=== PATIENT | female | born 1945 | race Caucasian/White ===

== ENCOUNTER 2018-01-22 06:33 | Day surgery (SDC) | payer MEDICARE ==
[2018-01-16 15:44] VITALS: BMI 49.9
[~2018-01-22 06:33] MED LIST: LACTATED RINGERS 1,000 ML IV SCH; LIDOCAINE 1% 20 ML VIAL (10MG/ML) FOR IV START INTRADERMA PRN
[2018-01-22 07:26] VITALS: TEMP 96.8
[2018-01-22] MEDS ORDERED: LACTATED RINGERS 1,000 ML IV ONE ×2 (07:40)
[2018-01-22 07:41] LABS: Glucose,Whole Blood 144 mg/dL (75-99)
[2018-01-22] MEDS ORDERED: PROPOFOL 10 MG/ML 20 ML VIAL IV ONE (07:58)
[2018-01-22] MEDS ORDERED: LIDOCAINE 1% INJ 10MG/ML (20 ML MDV) ONE (07:58)
--- NOTE | 2018-01-22 08:32 | P.PCN ---
Date of Procedure: 01/22/18 Procedure(s) Performed: Procedure: Total colonoscopy. Preoperative diagnosis: Screening for neoplasia. Postoperative diagnosis: Exam within normal limits. Preparation: HalfLytely prep. Sedation: Was provided by anesthesia. Brief clinical history: The patient is a 72-year-old female who is scheduled for this evaluation for screening for neoplasia age being her risk factor. She never had a prior exam. She has no abdominal complaints, bleeding or anemia. Procedure: With the patient on her left lateral decubitus position and after informed consent and adequate sedation, the perianal area was inspected and it did not show any fissures or fistulas. There were no masses felt on digital rectal examination. The Olympus CFQ 160L video colonoscope was then inserted in the rectum and the usual fashion and advanced to the cecum. The mucosa appeared healthy. No polyps or tumors were seen or any obvious diverticular disease or other pathology. I retroflexed the endoscope in the rectum before the endoscope was withdrawn. The patient tolerated the procedure well. Plan: The patient was reassured. I discussed with her son. At her age, I did not schedule a future screening exam and that could be kept as a contingency based on her overall health in 10 years.
[2018-01-22 08:45] VITALS: BP 112/63; PULSE 93; RESP 18
== END 2018-01-22 09:38 | disposition home or self-care (01) ==
LOC: ORWHC2ENDO 06:33
DX: Z12.11 Encounter for screening for malignant neoplasm of colon (principal); I48.91 Unspecified atrial fibrillation; I10 Essential (primary) hypertension; E78.5 Hyperlipidemia, unspecified; E11.40 Type 2 diabetes mellitus with diabetic neuropathy, unspecified; G47.33 Obstructive sleep apnea (adult) (pediatric); J45.909 Unspecified asthma, uncomplicated; E66.01 Morbid (severe) obesity due to excess calories; Z79.01 Long term (current) use of anticoagulants; Z79.899 Other long term (current) drug therapy; Z68.42 Body mass index [BMI] 45.0-49.9, adult
CPT/HCPCS: J2001; J2704; G0121

== ENCOUNTER 2018-02-10 17:43 | Inpatient (IN) | payer MEDICARE, OTHER ==
[2018-02-10] MEDS ORDERED: SODIUM CHLORIDE 0.9% 1,000 ML IV STA (17:56)
--- NOTE | 2018-02-10 18:15 | ED ---
Nausea/Vomiting/Diarrhea HPI - General Chief complaint: Nausea/Vomiting/Diarrhea Stated complaint: Weakness Time Seen by Provider: 02/10/18 17:56 Source: EMS, RN notes reviewed, old records reviewed Mode of arrival: EMS Limitations: no limitations - History of Present Illness Initial comments: This is a 72-year-old female the ER for evaluation patient resents today for evaluation of weakness, persistent diarrhea. Patient is a poor historian history obtained from patient's son. Patient feels like her heart is racing and has had nausea vomiting and diarrhea for 1-2 days. No fevers. MD complaint: nausea, vomiting, diarrhea -: days(s) (2) Description of Vomiting: food contents, foul-smelling Associated Abdominal Pain: No Radiation: none Severity: severe Severity scale (1-10): 8 Quality: cramping Consistency: constant Improves with: none Worsens with: none - Related Data Home Medications Medication Instructions Recorded Confirmed Oxybutynin Chloride [Ditropan] 5 mg PO BID 10/20/13 02/10/18 Cyanocobalamin (Vitamin B-12) 1,000 mcg PO DAILY 01/16/18 02/10/18 [Vitamin B-12] Metoprolol Tartrate [Lopressor] 50 mg PO DAILY 01/16/18 02/10/18 Atorvastatin [Lipitor] 20 mg PO HS 02/10/18 02/10/18 Warfarin Sodium 4 mg PO DAILY 02/10/18 02/10/18 Warfarin [Coumadin] 1 mg PO DAILY 02/10/18 02/10/18 Allergies Allergy/AdvReac Type Severity Reaction Status Date / Time No Known Allergies Allergy Verified 02/10/18 18:14 Review of Systems ROS Statement: Those systems with pertinent positive or pertinent negative responses have been documented in the HPI. ROS Other: All systems not noted in ROS Statement are negative. Past Medical History Past Medical History: Atrial Fibrillation, Diabetes Mellitus, Hyperlipidemia, Hypertension Additional Past Medical History / Comment(s): neuropathy- afib new onset October 2013. DIET CONTROL DIABETIC History of Any Multi-Drug Resistant Organisms: None Reported Past Surgical History: Cholecystectomy, Hernia Repair Additional Past Surgical History / Comment(s): Large abdominal abscess I&D. Eye muscle surgery at 19 years of age. COLONOSCOPY Past Anesthesia/Blood Transfusion Reactions: No Reported Reaction Past Psychological History: No Psychological Hx Reported Smoking Status: Never smoker Past Alcohol Use History: None Reported Past Drug Use History: None Reported - Past Family History Father Family Medical History: Cancer Additional Family Medical History / Comment(s): lung cancer Mother Family Medical History: Cancer Additional Family Medical History / Comment(s): stomach General Exam Limitations: no limitations General appearance: alert, in no apparent distress Head exam: Present: atraumatic, normocephalic, normal inspection Eye exam: Present: normal appearance, PERRL, EOMI. Absent: scleral icterus, conjunctival injection, periorbital swelling ENT exam: Present: normal exam, mucous membranes moist Neck exam: Present: normal inspection. Absent: tenderness, meningismus, lymphadenopathy Respiratory exam: Present: normal lung sounds bilaterally. Absent: respiratory distress, wheezes, rales, rhonchi, stridor Cardiovascular Exam: Present: tachycardia, irregular rhythm, normal heart sounds. Absent: systolic murmur, diastolic murmur, rubs, gallop, clicks GI/Abdominal exam: Present: soft, normal bowel sounds. Absent: distended, tenderness, guarding, rebound, rigid Extremities exam: Present: normal inspection, full ROM, normal capillary refill. Absent: tenderness, pedal edema, joint swelling, calf tenderness Back exam: Present: normal inspection Neurological exam: Present: alert, oriented X3, CN II-XII intact Psychiatric exam: Present: normal affect, normal mood Skin exam: Present: warm, dry, intact, normal color. Absent: rash Course Vital Signs 02/10/18 02/10/18 02/10/18 18:11 18:44 18:50 Temperature 98.3 F Pulse Rate 154 H Respiratory 20 Rate Blood Pressure 145/100 143/116 O2 Sat by Pulse 95 95 97 Oximetry 02/10/18 02/10/18 02/10/18 19:01 19:10 19:20 Temperature Pulse Rate 95 103 H Respiratory 18 Rate Blood Pressure 143/116 155/112 155/112 O2 Sat by Pulse 97 76 L 97 Oximetry 02/10/18 02/10/18 02/10/18 19:30 19:40 19:50 Temperature Pulse Rate 111 H 106 H Respiratory Rate Blood Pressure 155/112 149/85 149/85 O2 Sat by Pulse 85 L 89 L 98 Oximetry 02/10/18 02/10/18 02/10/18 20:00 20:10 20:20 Temperature Pulse Rate Respiratory Rate Blood Pressure 149/85 146/99 146/99 O2 Sat by Pulse 96 95 97 Oximetry 02/10/18 21:47 Temperature 98.6 F Pulse Rate 102 H Respiratory 20 Rate Blood Pressure 144/81 O2 Sat by Pulse 97 Oximetry - Reevaluation(s) Reevaluation #1: 02/10/18 21:55 Medical record is reviewed and noncontributory Reevaluation #2: 02/10/18 21:55 Atrial fibrillation with RVR stop on its own Reevaluation #3: 02/10/18 21:55 Patient still having nausea and vomiting Medical Decision Making - Medical Decision Making 72 female the ER with nausea vomiting diarrhea incontinence of urine. Patient will be admitted for symptom management, patient currently still nauseous, vomiting has improved - Lab Data Result diagrams: 02/10/18 18:30 02/10/18 18:30 Lab Results 02/10/18 02/10/18 02/10/18 Range/Units 18:30 18:30 18:30 WBC 7.9 (3.8-10.6) k/uL RBC 4.50 (3.80-5.40) m/uL Hgb 13.9 (11.4-16.0) gm/dL Hct 42.6 (34.0-46.0) % MCV 94.6 (80.0-100.0) fL MCH 30.9 (25.0-35.0) pg MCHC 32.7 (31.0-37.0) g/dL RDW 12.9 (11.5-15.5) % Plt Count 185 (150-450) k/uL Neutrophils % 74 % Lymphocytes % 17 % Monocytes % 5 % Eosinophils % 2 % Basophils % 0 % Neutrophils # 5.9 (1.3-7.7) k/uL Lymphocytes # 1.3 (1.0-4.8) k/uL Monocytes # 0.4 (0-1.0) k/uL Eosinophils # 0.2 (0-0.7) k/uL Basophils # 0.0 (0-0.2) k/uL PT (9.0-12.0) sec INR (<1.2) APTT (22.0-30.0) sec Sodium 144 (137-145) mmol/L Potassium 4.4 (3.5-5.1) mmol/L Chloride 112 H (98-107) mmol/L Carbon Dioxide 22 (22-30) mmol/L Anion Gap 10 mmol/L BUN 13 (7-17) mg/dL Creatinine 0.92 (0.52-1.04) mg/dL Est GFR (CKD-EPI)AfAm 73 (>60 ml/min/1.73 sqM) Est GFR (CKD-EPI)NonAf 63 (>60 ml/min/1.73 sqM) Glucose 120 H (74-99) mg/dL Plasma Lactic Acid Bud (0.7-2.0) mmol/L Calcium 8.8 (8.4-10.2) mg/dL Phosphorus 2.9 (2.5-4.5) mg/dL Magnesium 1.9 (1.6-2.3) mg/dL Total Bilirubin 1.4 H (0.2-1.3) mg/dL AST 20 (14-36) U/L ALT 19 (9-52) U/L Alkaline Phosphatase 130 H (38-126) U/L Total Creatine Kinase 53 (30-135) U/L CK-MB (CK-2) 0.7 (0.0-2.4) ng/mL CK-MB (CK-2) Rel Index 1.3 Troponin I <0.012 (0.000-0.034) ng/mL Total Protein 7.5 (6.3-8.2) g/dL Albumin 3.7 (3.5-5.0) g/dL TSH 0.101 L (0.465-4.680) mIU/L 02/10/18 02/10/18 Range/Units 18:30 18:41 WBC (3.8-10.6) k/uL RBC (3.80-5.40) m/uL Hgb (11.4-16.0) gm/dL Hct (34.0-46.0) % MCV (80.0-100.0) fL MCH (25.0-35.0) pg MCHC (31.0-37.0) g/dL RDW (11.5-15.5) % Plt Count (150-450) k/uL Neutrophils % % Lymphocytes % % Monocytes % % Eosinophils % % Basophils % % Neutrophils # (1.3-7.7) k/uL Lymphocytes # (1.0-4.8) k/uL Monocytes # (0-1.0) k/uL Eosinophils # (0-0.7) k/uL Basophils # (0-0.2) k/uL PT 18.2 H (9.0-12.0) sec INR 1.8 H (<1.2) APTT 24.3 (22.0-30.0) sec Sodium (137-145) mmol/L Potassium (3.5-5.1) mmol/L Chloride (98-107) mmol/L Carbon Dioxide (22-30) mmol/L Anion Gap mmol/L BUN (7-17) mg/dL Creatinine (0.52-1.04) mg/dL Est GFR (CKD-EPI)AfAm (>60 ml/min/1.73 sqM) Est GFR (CKD-EPI)NonAf (>60 ml/min/1.73 sqM) Glucose (74-99) mg/dL Plasma Lactic Acid Bud 1.9 (0.7-2.0) mmol/L Calcium (8.4-10.2) mg/dL Phosphorus (2.5-4.5) mg/dL Magnesium (1.6-2.3) mg/dL Total Bilirubin (0.2-1.3) mg/dL AST (14-36) U/L ALT (9-52) U/L Alkaline Phosphatase (38-126) U/L Total Creatine Kinase (30-135) U/L CK-MB (CK-2) (0.0-2.4) ng/mL CK-MB (CK-2) Rel Index Troponin I (0.000-0.034) ng/mL Total Protein (6.3-8.2) g/dL Albumin (3.5-5.0) g/dL TSH (0.465-4.680) mIU/L - EKG Data -: EKG Interpreted by Me (EKG shows sinus rhythm rate of 90, NV 146, QRS 1.2, QTc 494) Disposition Clinical Impression: Atrial fibrillation, Atrial fibrillation with RVR, Dehydration, Gastroenteritis , Nausea & vomiting Disposition: ADMITTED IP TO THIS HOSP Condition: Good Is patient prescribed a controlled substance at d/c from ED?: No Referrals: None,Stated [REFERRING] - 1-2 days
[2018-02-10 18:51] LABS: Basophils % (A) 0 %; Eosinophils # (A) 0.2 k/uL (0-0.7); Eosinophils % (A) 2 %; HCT 42.6 % (34.0-46.0); HGB 13.9 gm/dL (11.4-16.0); Lymphocytes # (A) 1.3 k/uL (1.0-4.8); Lymphocytes % (A) 17 %; MCH 30.9 pg (25.0-35.0); MCHC 32.7 g/dL (31.0-37.0); MCV 94.6 fL (80.0-100.0); Mean Platelet Volume 7.7; Monocytes # (A) 0.4 k/uL (0-1.0); Monocytes % (A) 5 %; Neutrophils # (A) 5.9 k/uL (1.3-7.7); Neutrophils % (A) 74 %; Platelet Count 185 k/uL (150-450); RDW 12.9 % (11.5-15.5); WBC 7.9 k/uL (3.8-10.6)
[2018-02-10] MEDS ORDERED: PANTOPRAZOLE 40 MG/10 ML VIAL IVP STA (18:53)
[2018-02-10] MEDS ORDERED: ONDANSETRON 4 MG/2 ML VIAL IVP STA (18:53)
[2018-02-10 19:01] LABS: INR 1.8 (<1.2); Partial Thromboplastin Time 24.3 sec (22.0-30.0); Prothrombin Time 18.2 sec (9.0-12.0)
[2018-02-10 19:04] LABS: Albumin 3.7 g/dL (3.5-5.0); Calcium 8.8 mg/dL (8.4-10.2); Magnesium 1.9 mg/dL (1.6-2.3); Phosphorus 2.9 mg/dL (2.5-4.5); Potassium 4.4 mmol/L (3.5-5.1); Total Bilirubin 1.4 mg/dL (0.2-1.3); Total Protein 7.5 g/dL (6.3-8.2)
[2018-02-10 19:08] LABS: Creatine Kinase 53 U/L (30-135)
[2018-02-10 19:21] LABS: Creatine Kinase MB 0.7 ng/mL (0.0-2.4); Troponin I <0.012 ng/mL (0.000-0.034)
[2018-02-10] MEDS ORDERED: ONDANSETRON 4 MG/2 ML VIAL IVP PRN (21:25)
[2018-02-10] MEDS ORDERED: METOCLOPRAMIDE 5 MG/ML 2 ML VIAL IVP STA (21:26)
[2018-02-10] MEDS ORDERED: diphenhydrAMINE 50 MG/ML 1 ML VIAL IVP STA (21:26)
--- NOTE | 2018-02-11 00:02 | P.HPIM ---
History of Present Illness H&P Date: 02/10/18 Chief Complaint: abd pain 72 year old female with history of HTN, DM, and afib on coumadin patient presented to the ED today, due to sudden on set lower abd pain , 10/10 in severity, sharp constant pain , non radiating , started today, not related to food, she did not try to take any medications for it, and decided to come to the hospital for evaluation. this was associated with nausea, but no vomiting , no fevers, no chills. she denies any recent travel , sick contact, or any unsanitary food source. patient reports chronic diarrhea 2-4 times daily, non bloody , no melena , this has been going on for 3-4 months, she denies any associated tennesmus patient otherwise, denies any GI bleeding, heart racing, palpitation, chest pain , SOB< fever, chills, or new focal neurological deficit. currently she feels more comfortable, reports that her lower abd pain is at 3/ 10 in severity. Review of Systems Pertinent positives as noted in HPI. All other systems were reviewed and are negative Past Medical History Past Medical History: Atrial Fibrillation, Diabetes Mellitus, Hyperlipidemia, Hypertension Additional Past Medical History / Comment(s): neuropathy- afib new onset October 2013. DIET CONTROL DIABETIC History of Any Multi-Drug Resistant Organisms: None Reported Past Surgical History: Cholecystectomy, Hernia Repair Additional Past Surgical History / Comment(s): Large abdominal abscess I&D. Eye muscle surgery at 19 years of age. COLONOSCOPY Past Anesthesia/Blood Transfusion Reactions: No Reported Reaction Past Psychological History: No Psychological Hx Reported Smoking Status: Never smoker Past Alcohol Use History: None Reported Past Drug Use History: None Reported - Past Family History Father Family Medical History: Cancer Additional Family Medical History / Comment(s): lung cancer Mother Family Medical History: Cancer Additional Family Medical History / Comment(s): stomach Medications and Allergies Home Medications Medication Instructions Recorded Confirmed Type Oxybutynin Chloride [Ditropan] 5 mg PO BID 10/20/13 02/10/18 History Cyanocobalamin (Vitamin B-12) 1,000 mcg PO DAILY 01/16/18 02/10/18 History [Vitamin B-12] Metoprolol Tartrate [Lopressor] 50 mg PO DAILY 01/16/18 02/10/18 History Atorvastatin [Lipitor] 20 mg PO HS 02/10/18 02/10/18 History Warfarin Sodium 4 mg PO DAILY 02/10/18 02/10/18 History Warfarin [Coumadin] 1 mg PO DAILY 02/10/18 02/10/18 History Allergies Allergy/AdvReac Type Severity Reaction Status Date / Time No Known Allergies Allergy Verified 02/10/18 18:14 Physical Exam Vitals: Vital Signs Temp Pulse Resp BP Pulse Ox 02/10/18 22:21 98.0 F 02/10/18 21:47 98.6 F 102 H 20 144/81 97 02/10/18 20:20 146/99 97 02/10/18 20:10 146/99 95 02/10/18 20:00 149/85 96 02/10/18 19:50 106 H 149/85 98 02/10/18 19:40 149/85 89 L 02/10/18 19:30 111 H 155/112 85 L 02/10/18 19:20 103 H 155/112 97 02/10/18 19:10 155/112 76 L 02/10/18 19:01 95 18 143/116 97 02/10/18 18:50 143/116 97 02/10/18 18:44 95 02/10/18 18:11 98.3 F 154 H 20 145/100 95 Intake and Output 02/10/18 02/10/18 02/11/18 14:59 22:59 06:59 Other: Weight 149.685 kg Constitutional: No acute distress, conversant, pleasant, obese Eyes: Anicteric sclerae, moist conjunctiva, no lid-lag Pupils equal round reactive to light ENMT: NC/AT Oropharynx clear, no erythema, exudates Neck: Supple, FROM, no masses, or JVD No carotid bruits No thyromegaly Lungs: Clear to auscultation Clear to percussion Normal respiratory effort, no accessory muscle use Cardiovascular: Heart irregular No murmurs, gallops, or rubs No peripheral edema Abdominal: Soft Slight discomfort to palpation of the suprapubic region , no guarding, rebound or rigidity Abdomen moving with respiration Normoactive bowel sounds No hepatomegaly, No splenomegaly No palpable mass No abdominal wall hernia noted Skin: Normal temperature, tone, texture, turgor No induration No subcutaneous nodules No rash No ulcers Chronic skin changes over the lower third of bilateral legs Extremities: No digital cyanosis No clubbing Pedal pulses weak and symmetrical, both feet warm to the touch Radial pulses intact and symmetrical No calf tenderness Psychiatric: Alert and oriented to person, place and time Appropriate affect fair judgment Neuro Muscles Strength 4/5 in all 4 extremities Sensation to light touch grossly present throughout Cranial nerves II-XII grossly intact No focal sensory deficits Lymphatics: no palpable cervical or supraclavicular , or inguinal lymph nodes Results CBC & Chem 7: 02/10/18 18:30 02/10/18 18:30 Labs: Abnormal Lab Results - Last 24 Hours (Table) 02/10/18 02/10/18 Range/Units 18:30 18:30 PT 18.2 H (9.0-12.0) sec INR 1.8 H (<1.2) Chloride 112 H (98-107) mmol/L Glucose 120 H (74-99) mg/dL Total Bilirubin 1.4 H (0.2-1.3) mg/dL Alkaline Phosphatase 130 H (38-126) U/L TSH 0.101 L (0.465-4.680) mIU/L Assessment and Plan Assessment: 72-year-old female with history of hypertension, diabetes, A. fib on Coumadin, patient admitted under observation with anticipated length of stay less than 48 hours due to acute onset lower abdominal pain and chronic diarrhea with nausea and poor by mouth intake. Patient's stool be started for cultures and C. diff, IV fluid hydration and symptomatic control most likely patient has gastroenteritis if symptoms improve by morning and tolerating by mouth intake possibly patient will be discharged Plan: Acute gastroenteritis Symptomatic control IV fluid hydration Check stool for C. diff and other infectious causes Otherwise chronic diarrhea should be investigated now patient Patient claims to be up-to-date on his colonoscopies which has been normal Chronic A. fib on Coumadin Denies any GI bleeding Continue Coumadin dosing by pharmacy Hypertension currently controlled Continue metoprolol Diabetes mellitus type 2 controlled Insulin sliding scale Low TSH consider outpatient follow-up DVT prophylaxis patient on Coumadin for A. fib Surrogate decision-maker: Patient daughter and son CODE STATUS: Full code Discussed with: Patient, ER, RN Anticipated discharge: <[address]: Home A total of 55 minutes was spent on the care of this complex patient more than 50 % of the time was spent in counseling and care coordination.
[2018-02-11 04:09] LABS: Appearance,Urine Cloudy (Clear); Bacteria,Urine Few /hpf; Bilirubin,Urine Negative (Negative); Blood,Urine Trace (Negative); Color,Urine Yellow; Glucose,Urine (UA) Negative (Negative); Ketones,Urine Negative (Negative); Leukocyte Esterase,Urine Large (Negative); Mucus,Urine Rare /hpf; Nitrite,Urine Positive (Negative); Protein,Urine Trace (Negative); RBC,Urine 3 /hpf (0-5); Specific Gravity,Urine 1.011 (1.001-1.035); Squamous Epithelial Cell,Urine 2 /hpf (0-4); Urobilinogen,Urine <2.0 mg/dL (<2.0); WBC,Urine 85 /hpf (0-5)
[2018-02-11] MEDS ORDERED: MORPHINE SULFATE 4 MG/ML SYRINGE IVP ONE (04:15)
[2018-02-11 08:07] LABS: Glucose,Whole Blood 100 mg/dL (75-99)
[2018-02-11] MEDS: INSULIN ASPART 100 UNIT/ML 1 ML 10 ML VIAL SQ SCH ×4 (08:07→22:02)
[2018-02-11] MEDS: METOPROLOL TARTRATE 50 MG TAB PO SCH (08:15)
[2018-02-11 09:52] LABS: Basophils % (A) 0 %; Eosinophils # (A) 0.1 k/uL (0-0.7); Eosinophils % (A) 2 %; HCT 36.6 % (34.0-46.0); HGB 11.8 gm/dL (11.4-16.0); Lymphocytes # (A) 1.3 k/uL (1.0-4.8); Lymphocytes % (A) 24 %; MCH 30.9 pg (25.0-35.0); MCHC 32.2 g/dL (31.0-37.0); MCV 95.8 fL (80.0-100.0); Mean Platelet Volume 7.4; Monocytes # (A) 0.5 k/uL (0-1.0); Monocytes % (A) 8 %; Neutrophils # (A) 3.6 k/uL (1.3-7.7); Neutrophils % (A) 64 %; Platelet Count 186 k/uL (150-450); RBC 3.82 m/uL (3.80-5.40); RDW 12.8 % (11.5-15.5); WBC 5.5 k/uL (3.8-10.6)
[2018-02-11 09:54] LABS: Prothrombin Time 19.3 sec (9.0-12.0)
[2018-02-11 10:02] LABS: Albumin 2.9 g/dL (3.5-5.0); Calcium 8.3 mg/dL (8.4-10.2); Potassium 4.2 mmol/L (3.5-5.1); Total Bilirubin 1.2 mg/dL (0.2-1.3); Total Protein 6.1 g/dL (6.3-8.2)
--- NOTE | 2018-02-11 10:13 | P.PN ---
Subjective Progress Note Date: 02/11/18 Principal diagnosis: Gastroenteritis, chronic diarrhea. Patient seen and examined. No acute events overnight. Patient reports complete resolution of abdominal pain. No nausea or vomiting at this point. She denies any chest pain, shortness of breath or palpitations. Patient reports diarrhea ongoing for the past 3-4 months. She denies any fever or chills. No recent antibiotic use. Stool is normal in color, watery per patient with no blood. Reports at least 1 bowel movement daily (diarrhea?). Objective - Vital Signs Vital signs: Vital Signs Temp 98.7 F 02/11/18 07:00 Pulse 95 02/11/18 07:00 Resp 17 02/11/18 07:00 BP 93/61 02/11/18 07:00 Pulse Ox 92 L 02/11/18 07:00 Intake & Output 02/10/18 02/11/18 02/11/18 18:59 06:59 18:59 Weight 149.685 kg Other: Voiding Method Bedside Commode Diaper # Voids 1 - Exam General: [non toxic], [no distress], [appears at stated age] Derm: [warm], [dry] Head: [atraumatic], [normocephalic], [symmetric] Eyes: [EOMI], [no lid lag], [anicteric sclera] Mouth: [no lip lesion], [mucus membranes moist] Cardiovascular: [Irregularly irregular], [no murmur], [positive DP pulse bilateral], Lungs: [Decreased breath sounds bilateral], [no rhonchi, no rales] , [no accessory muscle use] Abdominal: [soft], [ nontender to palpation], [no guarding], [no appreciable organomegaly], [obese] Ext: [no gross muscle atrophy], [no edema], [no contractures] Neuro: [no focal neuro deficits] Psych: [Alert], [oriented], [appropriate affect] - Labs CBC & Chem 7: 02/10/18 18:30 02/10/18 18:30 Labs: Abnormal Lab Results - Last 24 Hours (Table) 02/10/18 02/10/18 02/11/18 Range/Units 18:30 18:30 03:50 PT 18.2 H (9.0-12.0) sec INR 1.8 H (<1.2) Chloride 112 H (98-107) mmol/L Glucose 120 H (74-99) mg/dL POC Glucose (mg/dL) (75-99) mg/dL Total Bilirubin 1.4 H (0.2-1.3) mg/dL Alkaline Phosphatase 130 H (38-126) U/L TSH 0.101 L (0.465-4.680) mIU/L Urine Appearance Cloudy H (Clear) Urine Protein Trace H (Negative) Urine Blood Trace H (Negative) Urine Nitrite Positive H (Negative) Ur Leukocyte Esterase Large H (Negative) Urine WBC 85 H (0-5) /hpf Urine Bacteria Few H (None) /hpf Urine Mucus Rare H (None) /hpf 02/11/18 Range/Units 07:55 PT (9.0-12.0) sec INR (<1.2) Chloride (98-107) mmol/L Glucose (74-99) mg/dL POC Glucose (mg/dL) 100 H (75-99) mg/dL Total Bilirubin (0.2-1.3) mg/dL Alkaline Phosphatase (38-126) U/L TSH (0.465-4.680) mIU/L Urine Appearance (Clear) Urine Protein (Negative) Urine Blood (Negative) Urine Nitrite (Negative) Ur Leukocyte Esterase (Negative) Urine WBC (0-5) /hpf Urine Bacteria (None) /hpf Urine Mucus (None) /hpf Assessment and Plan Assessment: Assessment and Plan 1. Noninfectious gastroenteritis: Ongoing for the past 3-4 months. States is watery without formed stools but only 1 bowel movement daily? Low concern for C. difficile. Patient is aferbile with no leukocytosis. TSH 0.101. Will continue supportive treatment. Zofran IV PRN for N/V. Advance diet as tolerated. FU Stool Cx, C. difficile, Lipase, T.Bili/ALK-P, FT4 2. Asymptomatic bacteruria: Nitrite and LE +. Patient asymptomatic. Will monitor , do not treat. 3. Atrial fibrillation: Rate controlled. Continue Metoprolol 50 mg PO QD. Anticoagulation with Coumadin 5 mg PO QD. Keep Mg > 2 and K > 4. TSH 0.101. FU FT4 4. Diabetes Mellitus: POC glucose 100. A1c 5.7 in 2013. Diabetic diet. ISS. Hypoglycemic precautions. Regular accuchecks. 5. Hypertension: BP 93/61. Continue Metoprolol. Continue Lipitor 20 mg PO QHS. Monitor vitals adjust medications as necessary Patient improving since admission. No BM since admission. Unable to collect sample. Likely non infectious given how long the patient has had diarrhea. She shows no signs of dehydration. Will advance her diet. She will possibly be discharged today or tomorrow depending on how well she tolerates her diet. She will also need a good follow up for C-scope arrangement and workup of chronic diarrhea.
[2018-02-11 11:32] LABS: Glucose,Whole Blood 86 mg/dL (75-99)
[2018-02-11 12:14] LABS: T4, Free (Free Thyroxine) 1.7 ng/dL (0.78-2.19)
[2018-02-11 16:57] LABS: Glucose,Whole Blood 124 mg/dL (75-99)
[2018-02-11] MEDS ORDERED: WARFARIN 5 MG TAB PO ONE (18:00)
[2018-02-11 20:50] LABS: Glucose,Whole Blood 157 mg/dL (75-99)
[2018-02-11] MEDS: ATORVASTATIN 20 MG TAB PO SCH (22:02)
[2018-02-12 07:38] LABS: Glucose,Whole Blood 91 mg/dL (75-99)
[2018-02-12 10:11] LABS: INR 1.9 (<1.2); Prothrombin Time 18.3 sec (9.0-12.0)
[2018-02-12] MEDS: METOPROLOL TARTRATE 50 MG TAB PO SCH (11:36)
--- NOTE | 2018-02-12 11:53 | P.PN ---
Subjective Progress Note Date: 02/12/18 Principal diagnosis: Gastroenteritis Patient seen and examined. No acute events overnight. Patient reports resolution of her diarrhea. One small bowel yesterday. No bowel movement today. She denies any abdominal pain or nausea or vomiting. Yesterday his plan to discharge was halted due to the fact that patient is currently homeless. She was previously living in a hotel/motel, and currently has no living arrangement. She is under Adult Protective Services who recommended inpatient rehab. Objective - Vital Signs Vital signs: Vital Signs Temp 98.0 F 02/12/18 11:34 Pulse 86 02/12/18 11:34 Resp 16 02/12/18 11:34 BP 129/78 02/12/18 11:34 Pulse Ox 96 02/12/18 11:34 Intake & Output 02/11/18 02/12/18 02/12/18 18:59 06:59 18:59 Intake Total 360 280 Output Total 1 2 Balance 359 -2 280 Intake: Oral 360 280 Output: Stool 1 2 Other: Voiding Method Toilet Toilet Bedside Commode Bedside Commode Diaper Diaper # Voids 1 2 - Exam General: [non toxic], [no distress], [appears at stated age] Derm: [warm], [dry] Head: [atraumatic], [normocephalic], [symmetric] Eyes: [EOMI], [no lid lag], [anicteric sclera] Mouth: [no lip lesion], [mucus membranes moist] Cardiovascular: [Irregularly irregular], [no murmur], [positive DP pulse bilateral], Lungs: [Decreased breath sounds bilateral], [no rhonchi, no rales] , [no accessory muscle use] Abdominal: [soft], [ nontender to palpation], [no guarding], [no appreciable organomegaly], [obese] Ext: [no gross muscle atrophy], [no edema], [no contractures] Neuro: [no focal neuro deficits] Psych: [Alert], [oriented], [appropriate affect] - Labs CBC & Chem 7: 02/11/18 08:57 02/11/18 08:57 Labs: Abnormal Lab Results - Last 24 Hours (Table) 02/11/18 02/11/18 02/12/18 Range/Units 16:45 20:35 09:22 PT 18.3 H (9.0-12.0) sec INR 1.9 H (<1.2) POC Glucose (mg/dL) 124 H 157 H (75-99) mg/dL Microbiology - Last 24 Hours (Table) 02/11/18 03:50 Urine Culture - Preliminary Urine,Clean Catch Gram Neg Bacilli 02/11/18 16:30 Stool Culture - Preliminary Stool Assessment and Plan Assessment: Assessment and Plan 1. Noninfectious gastroenteritis: Ongoing for the past 3-4 months. States is watery without formed stools but only 1 bowel movement daily? Low concern for C. difficile. Patient is aferbile with no leukocytosis. TSH 0.101, free T4 within normal limits. Will continue supportive treatment. Zofran IV PRN for N/ V. Advance diet as tolerated. C. difficile and lipase negative FU Stool Cx 2. Asymptomatic bacteruria: Nitrite and LE +. Patient asymptomatic. Will monitor , do not treat. Follow-up urine culture 3. Atrial fibrillation: Rate controlled. Continue Metoprolol 50 mg PO QD. Anticoagulation with Coumadin 5 mg PO QD. Keep Mg > 2 and K > 4. TSH 0.101, free T4 within normal limits. 4. Diabetes Mellitus: POC glucose 91. A1c 5.7 in 2014. Diabetic diet. ISS. Hypoglycemic precautions. Regular accuchecks. 5. Hypertension: BP 129/78. Continue Metoprolol. Continue Lipitor 20 mg PO QHS. Monitor vitals adjust medications as necessary Patient improving since admission. C. difficile negative, stool culture pending. Likely non infectious given how long the patient has had diarrhea. She shows no signs of dehydration. She is tolerating her diet fine. Social work on board for placement.
[2018-02-12 11:58] LABS: Glucose,Whole Blood 110 mg/dL (75-99)
[2018-02-12] MEDS: INSULIN ASPART 100 UNIT/ML 1 ML 10 ML VIAL SQ SCH ×3 (13:16→21:46)
[2018-02-12 17:08] LABS: Glucose,Whole Blood 150 mg/dL (75-99)
[2018-02-12] MEDS ORDERED: WARFARIN 5 MG TAB PO ONE (18:00)
[2018-02-12 20:38] LABS: Glucose,Whole Blood 108 mg/dL (75-99)
[2018-02-12] MEDS: ATORVASTATIN 20 MG TAB PO SCH (21:46)
[2018-02-13 07:04] LABS: Glucose,Whole Blood 111 mg/dL (75-99)
[2018-02-13 08:42] LABS: INR 1.7 (<1.2); Prothrombin Time 17.1 sec (9.0-12.0)
[2018-02-13] MEDS: METOPROLOL TARTRATE 50 MG TAB PO SCH (09:15)
[2018-02-13] MEDS: INSULIN ASPART 100 UNIT/ML 1 ML 10 ML VIAL SQ SCH ×4 (09:15→21:05)
--- NOTE | 2018-02-13 10:43 | P.PN ---
Subjective Progress Note Date: 02/13/18 Principal diagnosis: Placement Patient was seen and examined. No acute events overnight. Patient seen ambulating the room with the aid of a walker and the assistance of PT. She has no complaints this morning. No diarrhea or abdominal pain. No nausea or vomiting. No fever or chills. Objective - Vital Signs Vital signs: Vital Signs Temp 97.9 F 02/13/18 07:00 Pulse 90 02/13/18 07:00 Resp 18 02/13/18 07:00 BP 131/64 02/13/18 07:00 Pulse Ox 98 02/13/18 07:35 Intake & Output 02/12/18 02/13/18 02/13/18 18:59 06:59 18:59 Intake Total 560 280 220 Balance 560 280 220 Intake: Oral 560 280 220 Other: Voiding Method Toilet Bedside Commode Diaper # Voids 1 1 2 - Exam General: [non toxic], [no distress], [appears at stated age] Derm: [warm], [dry] Head: [atraumatic], [normocephalic], [symmetric] Eyes: [EOMI], [no lid lag], [anicteric sclera] Mouth: [no lip lesion], [mucus membranes moist] Cardiovascular: [Irregularly irregular], [no murmur], [positive DP pulse bilateral], Lungs: [Decreased breath sounds bilateral], [no rhonchi, no rales] , [no accessory muscle use] Abdominal: [soft], [ nontender to palpation], [no guarding], [no appreciable organomegaly], [obese] Ext: [no gross muscle atrophy], [no edema], [no contractures] Neuro: [no focal neuro deficits] Psych: [Alert], [oriented], [appropriate affect] - Labs CBC & Chem 7: 02/11/18 08:57 02/11/18 08:57 Labs: Abnormal Lab Results - Last 24 Hours (Table) 02/12/18 02/12/18 02/12/18 Range/Units 11:47 16:57 20:24 PT (9.0-12.0) sec INR (<1.2) POC Glucose (mg/dL) 110 H 150 H 108 H (75-99) mg/dL 02/13/18 02/13/18 Range/Units 06:49 07:49 PT 17.1 H (9.0-12.0) sec INR 1.7 H (<1.2) POC Glucose (mg/dL) 111 H (75-99) mg/dL Microbiology - Last 24 Hours (Table) 02/11/18 03:50 Urine Culture - Final Urine,Clean Catch Escherichia coli Assessment and Plan Assessment: Assessment and Plan 1. Noninfectious gastroenteritis: Ongoing for the past 3-4 months. States is watery without formed stools but only 1 bowel movement daily? Low concern for C. difficile. Patient is aferbile with no leukocytosis. TSH 0.101, free T4 within normal limits. Will continue supportive treatment. Zofran IV PRN for N/ V. Advance diet as tolerated. C. difficile and lipase negative. FU Stool Cx 2. Asymptomatic bacteruria: Nitrite and LE +. Patient asymptomatic. Will monitor , do not treat. UCx 100K E. coli valenzuela sensitive. 3. Atrial fibrillation: Rate controlled. Continue Metoprolol 50 mg PO QD. Anticoagulation with Coumadin 5 mg PO QD. Keep Mg > 2 and K > 4. TSH 0.101, free T4 within normal limits. 4. Diabetes Mellitus: POC glucose 111. A1c 5.7 in 2014. Diabetic diet. ISS. Hypoglycemic precautions. Regular accuchecks. 5. Hypertension: BP 131/64. Continue Metoprolol. Continue Lipitor 20 mg PO QHS. Monitor vitals adjust medications as necessary Patient improving since admission. C. difficile negative, stool culture pending. Likely non infectious given how long the patient has had diarrhea. She shows no signs of dehydration. She is tolerating her diet fine. Social work on board for placement.
[2018-02-13 11:36] LABS: Glucose,Whole Blood 99 mg/dL (75-99)
[2018-02-13 17:32] LABS: Glucose,Whole Blood 125 mg/dL (75-99)
[2018-02-13] MEDS ORDERED: WARFARIN 7.5 MG TAB PO ONE (18:00)
[2018-02-13 20:27] LABS: Glucose,Whole Blood 130 mg/dL (75-99)
[2018-02-13] MEDS: ATORVASTATIN 20 MG TAB PO SCH (21:29)
[2018-02-14 07:17] LABS: Glucose,Whole Blood 112 mg/dL (75-99)
[2018-02-14] MEDS: INSULIN ASPART 100 UNIT/ML 1 ML 10 ML VIAL SQ SCH ×4 (07:18→20:32)
[2018-02-14 07:24] LABS: INR 1.8 (<1.2); Prothrombin Time 17.9 sec (9.0-12.0)
[2018-02-14] MEDS: METOPROLOL TARTRATE 50 MG TAB PO SCH (09:14)
[2018-02-14 12:03] LABS: Glucose,Whole Blood 130 mg/dL (75-99)
[2018-02-14 17:38] LABS: Glucose,Whole Blood 120 mg/dL (75-99)
[2018-02-14] MEDS ORDERED: WARFARIN 7.5 MG TAB PO ONE (18:00)
[2018-02-14 20:28] VITALS: RESP 18
[2018-02-14 20:33] LABS: Glucose,Whole Blood 106 mg/dL (75-99)
[2018-02-14] MEDS: ATORVASTATIN 20 MG TAB PO SCH (20:34)
--- NOTE | 2018-02-14 20:35 | PN ---
PROGRESS NOTE DATE OF SERVICE: February 14, 2018. PRESENTING COMPLAINT: Weak and tired. INTERVAL HISTORY: Patient admitted with abdominal pain, diarrhea, what appeared to be acute gastroenteritis. There was no fever, no white count. Doing much better today, tolerating meals. Weak and tired. Looking to go to rehab. REVIEW OF SYSTEMS: Done for constitutional, cardiovascular, GI, pulmonary; relevant findings as above. CURRENT MEDICATIONS: Reviewed that include Coumadin. PHYSICAL EXAMINATION: VITAL SIGNS: Temperature 97.9, pulse 85, respiration 16, blood pressure 132/85, pulse ox 97% on room air. GENERAL APPEARANCE: Sitting up, awake. EYES: Pupils equal. Conjunctivae normal. NECK: JVD not raised. Mass not palpable. RESPIRATORY: Effort normal. LUNGS: Fair air entry. CARDIOVASCULAR: First and second sounds normal. No edema. ABDOMEN: Soft, nontender. Liver and spleen not palpable. PSYCHIATRY: Alert and oriented x3. Mood and affect normal. INVESTIGATIONS: INR 1.8. Accu-Cheks are noted. ASSESSMENT: 1. Acute gastroenteritis, likely viral, resolved. 2. Persistent atrial fibrillation, rate controlled, chronically on Coumadin. 3. Coumadin monitoring. 4. Essential hypertension. 5. Medical debility. 6. Morbid obesity BMI 53.3. 7. Chronic urinary stress incontinence. 8. Essential hypertension. PLAN: Continue current medication and treatment plan. Looking into rehab placement. Will consult Dr. Nava. Care was discussed with the patient. MMODL / IJN: [id number] /
--- NOTE | 2018-02-15 06:31 | P.CONS ---
History of Present Illness - Chief Complaint Medical debility - History of Present Illness I had the opportunity to see patient for inpatient rehab consultation with regard to medical debility. She was admitted to [facility] February 11 with nausea, emesis, diarrhea as well as pain in abdomen and back. Workup ongoing. PT reports supervision for bed, transfers, gait 20 feet with roller walker. OT reports supervision for upper dressing moderate assistance for lower dressing and toileting and minimal assistance for bathing and transfers. Previous functional history as elicited from patient: 72-year-old right-handed white female who is lives and second-floor apartment with steps with and son. Patient and retired. Son does cooking, laundry, driving. Patient receives assistance for sitdown shower. Otherwise independent with own dressing and mobility with 4 wheeled walker. Denies tobacco or alcohol. Visiting physicians. Family history both parents with cancer. Review of Systems Review of systems: ENT: Denies sneezes or discharge. Eyes: Denies discharge or photophobia. Cardiac: Denies chest pain or palpitation. Pulmonary: Denies cough or shortness of breath. Breast: Denies discharge or lumps. Gastrointestinal: Nausea. Genitourinary: Denies discharge or frequency. Musculoskeletal: Back discomfort. Neurologic: Denies motor or sensory change. Endocrine: Denies shakes or sweats. Oncology: Denies cancers. Dermatologic: Denies rash, itching, pruritus. ALLERGY/immunology: Denies sneezes, rashes. Past Medical History Past Medical History: Atrial Fibrillation, Diabetes Mellitus, Hyperlipidemia, Hypertension Additional Past Medical History / Comment(s): neuropathy- afib new onset October 2013. DIET CONTROL DIABETIC History of Any Multi-Drug Resistant Organisms: None Reported Past Surgical History: Cholecystectomy, Hernia Repair Additional Past Surgical History / Comment(s): Large abdominal abscess I&D. Eye muscle surgery at 19 years of age. COLONOSCOPY Past Anesthesia/Blood Transfusion Reactions: No Reported Reaction Past Psychological History: No Psychological Hx Reported Smoking Status: Never smoker Past Alcohol Use History: None Reported Past Drug Use History: None Reported - Past Family History Father Family Medical History: Cancer Additional Family Medical History / Comment(s): lung cancer Mother Family Medical History: Cancer Additional Family Medical History / Comment(s): stomach Medications and Allergies Home Medications Medication Instructions Recorded Confirmed Type Oxybutynin Chloride [Ditropan] 5 mg PO BID 10/20/13 02/10/18 History Cyanocobalamin (Vitamin B-12) 1,000 mcg PO DAILY 01/16/18 02/10/18 History [Vitamin B-12] Metoprolol Tartrate [Lopressor] 50 mg PO DAILY 01/16/18 02/10/18 History Atorvastatin [Lipitor] 20 mg PO HS 02/10/18 02/10/18 History Warfarin Sodium 4 mg PO DAILY 02/10/18 02/10/18 History Warfarin [Coumadin] 1 mg PO DAILY 02/10/18 02/10/18 History Allergies Allergy/AdvReac Type Severity Reaction Status Date / Time No Known Allergies Allergy Verified 02/10/18 18:14 Physical Exam Vitals: Vital Signs Temp Pulse Pulse Resp BP Pulse Ox 02/15/18 00:56 97.8 F 82 94 18 146/81 02/14/18 20:27 98.4 F 81 96 18 129/72 02/14/18 15:00 97.9 F 85 16 122/85 97 02/14/18 07:00 97.7 F 82 16 120/75 95 Intake and Output 02/14/18 02/14/18 02/15/18 14:59 22:59 06:59 Intake Total 220 Balance 220 Intake: Oral 220 Other: # Voids 3 3 Skin: Good color, texture, turgor. General: Morbidly obese and comfortable appearance. Head: Normocephalic, atraumatic. Eyes: Symmetric. Pupils equal round. Ears: Symmetric. Hearing within normal limits. Mouth: Clear. Neck: Supple. Carotid without bruit. Cardiac: Regular rate and rhythm. Lungs: Clear anteriorly and posteriorly. Abdomen: Soft active nontender. Obese. Extremities: Normal tone. Legs obese. Neurological: Mental status: Alert, cooperative, pleasant. Cranial nerves: Symmetric facial tone and trapezius. Motor: Can elevate all limbs. Sensation: Intact throughout. DTRs: Symmetric and equal throughout. Mobility: Sits with physical assistance. Results CBC & Chem 7: 02/11/18 08:57 02/11/18 08:57 Labs: Abnormal Lab Results - Last 24 Hours (Table) 02/14/18 02/14/18 02/14/18 Range/Units 06:42 07:06 11:43 PT 17.9 H (9.0-12.0) sec INR 1.8 H (<1.2) POC Glucose (mg/dL) 112 H 130 H (75-99) mg/dL 02/14/18 02/14/18 Range/Units 17:26 20:22 PT (9.0-12.0) sec INR (<1.2) POC Glucose (mg/dL) 120 H 106 H (75-99) mg/dL Microbiology - Last 24 Hours (Table) 02/11/18 16:30 Stool Culture - Final Stool Assessment and Plan (1) Gastroenteritis Current Visit: Yes Status: Acute Code(s): K52.9 - NONINFECTIVE GASTROENTERITIS AND COLITIS, UNSPECIFIED SNOMED Code(s): 62509768 Plan: Impression: 1. Medical debility. 2. Gastroenteritis. 3. Diabetes. 4. Hypertension. 5. Atrial fibrillation. 6. Morbid obesity. 7. Dyslipidemia. Comments and plan: At this time PT and OT are ongoing. Patient was safety concerns. Caregiver supports appear to be son as well as daughter. Must attempt to determine their goals for return the patient to home.
[2018-02-15 07:43] VITALS: BP 143/90; PULSE 87; TEMP 97.6
[2018-02-15 07:50] LABS: Glucose,Whole Blood 88 mg/dL (75-99)
[2018-02-15 08:23] LABS: INR 1.6 (<1.2); Prothrombin Time 15.7 sec (9.0-12.0)
[2018-02-15] MEDS: INSULIN ASPART 100 UNIT/ML 1 ML 10 ML VIAL SQ SCH ×2 (08:46→12:46)
[2018-02-15] MEDS: METOPROLOL TARTRATE 50 MG TAB PO SCH (08:48)
[2018-02-15 12:17] LABS: Glucose,Whole Blood 95 mg/dL (75-99)
--- NOTE | 2018-02-15 15:16 | DS ---
DISCHARGE SUMMARY DATE OF ADMISSION: 02/11/2018. DATE OF DISCHARGE: 02/15/2018 FINAL DIAGNOSES: 1. Acute gastroenteritis, likely viral. 2. Persistent atrial fibrillation, chronically on Coumadin. 3. Coumadin monitoring. 4. Essential hypertension. 5. Medical debility. 6. Morbid obesity, body mass index of 53.3. 7. Chronic urinary stress incontinence. 8. Essential hypertension. 9. Medical debility. HOSPITAL COURSE: This patient with nausea, vomiting, diarrhea, abdominal pain, doing much better by the time of discharge, felt to be gastroenteritis. PHYSICAL EXAMINATION: Temperature 97.6, pulse 87, respiration 18, blood pressure 143/90. LUNGS: Fair air entry. ABDOMEN: Soft, nontender. INVESTIGATIONS: INR 1.6. Patient will be requiring inpatient rehab. DISCHARGE MEDICATIONS: 1. Ditropan 5 mg p.o. b.i.d. 2. Vitamin B12 one thousand mcg p.o. daily. 3. Lipitor 20 mg q.h.s. 4. Lopressor 25 mg b.i.d. 5. Coumadin 5 mg daily. LABS: INR in 3 days. DISPOSITION: [facility]. FOLLOWUP: Follow up with Dr. Spence at [facility]. Follow up with Visiting Physician, Dr. Viramontes after DC from the [facility]. MMODL / IJN: [id number] /
[2018-02-15] MEDS ORDERED: WARFARIN 10 MG TAB PO ONE (18:00)
== END 2018-02-15 15:59 | DRG 392 ==
LOC: EC 17:43 → 4SSUR 21:25 → OBSVTOIN 02-11 15:13
PROVIDERS: ADMIT Hospitalist; ATTEND Hospitalist
DX: A08.4 Viral intestinal infection, unspecified (principal); I48.1 Persistent atrial fibrillation; Z68.43 Body mass index [BMI] 50.0-59.9, adult; E11.9 Type 2 diabetes mellitus without complications; E66.01 Morbid (severe) obesity due to excess calories; E78.5 Hyperlipidemia, unspecified; I10 Essential (primary) hypertension; I48.2 Chronic atrial fibrillation; N39.3 Stress incontinence (female) (male); Z74.1 Need for assistance with personal care; Z79.01 Long term (current) use of anticoagulants; Z79.899 Other long term (current) drug therapy; Z80.1 Family history of malignant neoplasm of trachea, bronchus and lung; Z90.49 Acquired absence of other specified parts of digestive tract
CPT/HCPCS: 36415; 80053; 81001; 82550; 82553; 83605; 83690; 83735; 84100; 84439; 84443; 84484; 85025; 85610; 85730; 87045; 87046; 87077; 87086; 87186; 87324; 93005; 96361; 96374; 96375; 99285